=== PATIENT | female | born 2000 | race Asian ===

== ENCOUNTER 2024-02-26 14:42 | Emergency (ER) | payer OTHER ==
[~2024-02-26] VITALS: Ht 157.5 cm; Wt 65.3 kg
[2024-02-26 15:12] VITALS: BP_SYST 129; PULSE 85; RESP 18; TEMP 98.1; O2SAT 98
[2024-02-26 16:06] LABS: BASOPHILS % (AUTO) 0.4 % (0.0-2.0); EOSINOPHILS # (AUTO) 0.1 K/uL (0.0-0.4); EOSINOPHILS % (AUTO) 1.9 % (0.0-4.0); HEMATOCRIT 38.7 % (36-48); HEMOGLOBIN 12.5 g/dL (12.0-16.0); LYMPHOCYTES # (AUTO) 1.8 K/uL (1.0-5.5); LYMPHOCYTES % (AUTO) 25.8 % (20.5-51.5); MEAN CORPUSCULAR HEMOGLOBIN 26 pg (27-31); MEAN CORPUSCULAR HGB CONC 33 % (32-36); MEAN CORPUSCULAR VOLUME 81 fL (79.0-98.0); MONOCYTES # (AUTO) 0.4 K/uL (0.0-1.0); MONOCYTES % (AUTO) 5.5 % (1.7-9.3); NEUTROPHILS # (AUTO) 4.7 K/uL (1.8-7.7); NEUTROPHILS % (AUTO) 66.4 % (40.0-70.0); PLATELET COUNT (AUTO) 422 K/uL (130-430); RED BLOOD CELL COUNT(AUTO) 4.78 MIL/uL (4.2-6.2); RED CELL DISTRIBUTION WIDTH 18.1 % (9.0-15.0)
[2024-02-26 16:42] LABS: PROTHROMBIN TIME 10.8 SECS (9.5-12.5)
[2024-02-26 16:46] LABS: ALBUMIN 3.9 g/dL (3.4-4.8); BILIRUBIN,DIRECT 0.1 mg/dL (0.0-0.3); CALCIUM 9.3 mg/dL (8.4-11.0); CREATININE 0.92 mg/dL (0.55-1.30); POTASSIUM 3.8 mmol/L (3.5-5.1); TOTAL BILIRUBIN 0.4 mg/dL (0.0-1.0); TOTAL PROTEIN, SERUM 8.3 g/dL (6.4-8.3)
[2024-02-26] MEDS ORDERED: TRAM50TA2 PO (17:06)
[2024-02-26] MEDS ORDERED: DOCU-144 PO (17:06)
[2024-02-26 17:22] VITALS: BP_SYST 128; PULSE 64; RESP 16; TEMP 98.6; O2SAT 100
== END 2024-02-26 17:20 | disposition home or self-care (01) ==
LOC: SED 14:42
DX: K62.5 Hemorrhage of anus and rectum (principal); R10.2 Pelvic and perineal pain; Z88.6 Allergy status to analgesic agent
CPT/HCPCS: 36415; 80048; 80076; 81025; 82150; 83605; 83690; 85025; 85610; 85730; 86886; 86900; 86901; 99284